=== PATIENT | male | born 1950 | race Caucasian/White ===

== ENCOUNTER 2020-03-14 08:13 | Outpatient (CLI) | payer OTHER, SELFPAY ==
[2020-03-15 17:26] LABS: COVID-19 RT-PCR Result NEGATIVE (Negative)
== END 2020-03-14 08:33 ==
PROVIDERS: Visit Provider Family Medicine
DX: Z11.59 Encounter for screening for other viral diseases (principal); Z01.818 Encounter for other preprocedural examination
CPT/HCPCS: U0003

== ENCOUNTER 2020-03-26 13:17 | Outpatient (RCR) | payer OTHER, SELFPAY | END 2020-03-26 23:59 | disposition home or self-care (01) | LOC: CR 13:17 | PROVIDERS: Visit Provider Family Medicine | DX: Z95.1 Presence of aortocoronary bypass graft (principal); Z51.89 Encounter for other specified aftercare | CPT/HCPCS: S9472 ==

== ENCOUNTER 2020-04-25 08:00 | Outpatient (RCR) | payer OTHER, SELFPAY | END 2020-04-26 23:59 | disposition home or self-care (01) | LOC: CR 08:00 | PROVIDERS: Visit Provider Family Medicine | DX: I25.10 Atherosclerotic heart disease of native coronary artery without angina pectoris (principal); Z95.1 Presence of aortocoronary bypass graft; Z51.89 Encounter for other specified aftercare | CPT/HCPCS: S9472 ==

== ENCOUNTER 2020-04-28 09:49 | Outpatient (RCR) | payer OTHER, SELFPAY | END 2020-05-26 23:59 | disposition home or self-care (01) | LOC: CR 09:49 | PROVIDERS: Visit Provider Family Medicine | DX: Z95.1 Presence of aortocoronary bypass graft (principal); Z51.89 Encounter for other specified aftercare | CPT/HCPCS: S9472 ==